=== PATIENT | female | born 1995 | race Caucasian/White ===

== ENCOUNTER → 2024-01-25 12:54 | Outpatient (REF) | payer OTHER, SELFPAY ==
[2024-01-25 15:11] LABS: Erythrocyte Sed Rate 2 mm/hour (0-20)
== END ==
LOC: REG 12:54
PROVIDERS: ATTENDING PHYSICIAN Physician Assistant
DX: R51.9 Headache, unspecified (principal); R59.0 Localized enlarged lymph nodes
CPT/HCPCS: 36415; 85652; 86140